=== PATIENT | female | born 1995 | race African-American/Black ===

== ENCOUNTER 2021-09-15 03:53 | Emergency (ER) | payer SELFPAY ==
[~2021-09-15] VITALS: Ht 167.6 cm; Wt 79.0 kg
[2021-09-15 05:43] LABS: BASOPHILS % 0.9 % (0.0-2.0); HEMATOCRIT. 41.6 % (36.0-48.0); HEMOGLOBIN. 13.9 g/dL (12.0-16.0); LYMPHOCYTES % 31.6 % (20.0-50.0); MEAN CORPUSCULAR HEMOGLOBIN 31.6 pg (28.0-32.0); MEAN CORPUSCULAR VOLUME 94.4 fL (81.0-99.0); MEAN PLATELET VOLUME 9.9 fl (7.4-10.4); MONOCYTES % 3.7 % (2.0-8.0); NEUTROPHILS % 58.8 % (40.0-76.0); PLATELET 214 x1000/uL (130-400); RED BLOOD CELL COUNT 4.41 mill/uL (4.2-5.4); RED CELL DISTRIBUTION WIDTH 14.3 % (11.6-14.6)
[2021-09-15 05:50] LABS: CHLORIDE 112 mEq/L (98-107)
[2021-09-15 05:51] LABS: HCG SCREEN NEGATIVE
[2021-09-15 05:55] LABS: ETHANOL BLOOD 215 mg/dL
[2021-09-15] MEDS ORDERED: ACETAMINOPHEN 325MG TABLET PO ONE (07:15)
[2021-09-15] MEDS ORDERED: IBUP-2028 PO (07:36)
[2021-09-15 08:00] VITALS: BP 108/63
== END 2021-09-15 09:03 | disposition home or self-care (01) ==
LOC: ER 04:54
DX: S09.8XXA Other specified injuries of head, initial encounter (principal); M54.2 Cervicalgia; F10.129 Alcohol abuse with intoxication, unspecified; Y90.7 Blood alcohol level of 200-239 mg/100 ml; J45.909 Unspecified asthma, uncomplicated; F17.210 Nicotine dependence, cigarettes, uncomplicated; V43.52XA Car driver injured in collision with other type car in traffic accident, initial encounter; Y93.89 Activity, other specified; Y92.488 Other paved roadways as the place of occurrence of the external cause
CPT/HCPCS: 36415; 71045; 74176; 80053; 80320; 82962; 84703; 85025; 99285; G0480